=== PATIENT | female | born 1940 | race Caucasian/White ===

== ENCOUNTER → 2023-12-17 12:21 | Outpatient (REF) | payer MEDICARE, BC, SELFPAY | LOC: HWRAD 12:21 | PROVIDERS: ATTENDING PHYSICIAN Physician Assistant Medical | DX: Z12.31 Encounter for screening mammogram for malignant neoplasm of breast (principal); M85.89 Other specified disorders of bone density and structure, multiple sites; E59 Dietary selenium deficiency | CPT/HCPCS: 77080 ==

== ENCOUNTER 2024-05-23 12:09 | Emergency (ER) | payer MEDICARE, BC, SELFPAY ==
[2024-05-23 12:20] VITALS: BP 160/84
--- NOTE | 2024-05-23 14:12 | ED.GENMED ---
History of Present Illness
General
Chief Complaint: Fall
Time Seen by Provider: 05/23/24 13:33
History of Present Illness
History of Present Illness:
Patient is a 84-year-old woman with history of hypertension presenting to the emergency department after a fall yesterday. Patient states that she was sitting in a foldable lawn chair when she got up and the chair fell over. She also fell landing
on her right side. She did not hit her head or lose consciousness. She is not on a blood thinner. She did have some pain to her shoulder and hip yesterday that she did take Motrin for and iced. However today she woke up with significantly
worsening pain and soreness. She is ambulatory. She does intermittently use a walker. No numbness tingling. No weakness
Past History
Past History
ED Past Medical History: HTN
ED Past Surgical History: Orthopedic
Social History
Tobacco: Non-smoker
Alcohol: None
Drug: None
Personal:
Living: with family
Phy Exam
Physical Exam
Physical Exam:
GENERAL: no acute distress
HEENT: atraumatic, extraocular muscles intact, no signs of entrapment, dentition intact, no other obvious trauma
NECK: no midline tenderness, normal range of motion, no other obvious trauma
BACK: no midline tenderness, no other obvious trauma
CHEST: no tenderness, no flail segment, no subcutaneous emphysema, no other obvious trauma
LUNGS: clear to auscultation bilaterally
CARDIOVASCULAR: regular rate and rhythm
ABDOMEN: soft, non-tender, no masses, no other obvious trauma
PELVIS: stable, no obvious injury
EXTREMITIES: moving all extremities, distal pulses intact, no other obvious trauma, diffuse tenderness over the right shoulder/scapula, right hip and right wrist. No point tenderness. 5 out of 5 strength in all extremities
NEUROLOGIC: awake, alert x 3, no focal deficits
Course
Orders/Labs/Results
Orders:
Orders
05/23/24 14:10
Ibuprofen [Motrin] 800 mg PO NOW STA
CR Hand - Right Min 3 Views Urgent
Comment:
Reason For Exam: fall
CR Hip - RT w/wo Pel 2-3 Vw* Urgent
Comment:
Reason For Exam: fall, hip pain
Include a pelvis x-ray?: Yes
CR Knee - Right 1 Or 2 Views Urgent
Comment:
Reason For Exam: pain
CR Shoulder - Right Min 2 View Urgent
Comment:
Reason For Exam: fall
Vital Signs
Initial and Last Documented VS:
Initial Vital Signs
Temp Pulse Resp BP Pulse Ox
97.7 F 81 16 160/84 99
05/23/24 12:20 05/23/24 12:20 05/23/24 12:20 05/23/24 12:20 05/23/24 12:20
Last Documented Vital Signs
Temp Pulse Resp BP Pulse Ox
97.7 F 81 16 160/84 99
05/23/24 12:20 05/23/24 12:20 05/23/24 12:20 05/23/24 12:20 05/23/24 12:20
MDM/Problems Addressed
Differential Diagnosis Includes:
Patient is a 84-year-old woman presenting to the emergency department after a fall yesterday with right sided body pain. Vitals unremarkable and exam does show diffuse tenderness over the right shoulder right wrist, right hip and right knee. She
does not have any point tenderness or overlying ecchymoses. Her muscles are extremely tight. Will rule out fractures with x-rays. Likely muscular sprain/bruising. Will give Motrin. Patient advised with physical therapy icing as well as
stretching.
*Critical Care Note
Total Time (30-74mins, 75-104mins- exclusive of procedures): Not Applicable
Update Note
Update Note:
X-rays per my interpretation with no acute fractures. Patient is ambulatory. Will discharge. Educated patient on pain medications as well as the importance of physical therapy.
ED Attending Note
-
Portions of this chart may have been created with voice recognition software.� Occasional wrong word or��sound alike� substitutions may have occurred due to the inherent limitations of voice recognition software.
Discharge Plan
Departure
Patient Disposition: Home (Routine Discharge)
Date of Disposition: 05/23/24
Time of Disposition: 16:10
Patient with high blood pressure during this ER visit?: Yes
Discharge Problem:
Fall
Instructions: Preventing falls in adults
Prescriptions:
No Action
ondansetron 4 MG tablet,disintegrating
4 mg PO TIDPRN PRN (Reason: nausea/vomiting) Qty: 10 0RF
Referrals:
UNKNOWN - PT DOES,NOT KNOW [Family Provider] -
Activity Restrictions/Additional Instructions:
You were seen in the Emergency Department today for a fall. While you were here we performed x-ray, which was reassuring.
We would like for you to follow up with your primary care physician for further evaluation. If you experience fever, worsening of your symptoms, or develop any other new or concerning symptoms, please return to the Emergency Department immediately.
Please see the attached sheet for additional information.
Interventions
Interventions:
*Risk Screen - Suicide Last Done: 05/23/24 12:20
*General Assessment Last Done: 05/23/24 14:32
*Neglect/Abuse Screening Last Done: 05/23/24 12:20
*ED COVID-19 Vaccine History Last Done: 05/23/24 14:32
ED-Musculoskeletal Assessment Last Done: 05/23/24 14:31
ED- Neurological Assessment Last Done: 05/23/24 14:31
ED-Skin Assessment Last Done: 05/23/24 14:31
Discharge Date and Time
Print Language: ROMANIAN
[2024-05-23] MEDS: MOTRIN 800 MG PO (14:27)
== END 2024-05-23 16:25 | disposition home or self-care (01) ==
LOC: EMR 12:09
PROVIDERS: EMERGENCY PHYSICIAN Student in an Organized Health Care Education/Training Program
DX: M25.511 Pain in right shoulder (principal); M25.551 Pain in right hip; M25.531 Pain in right wrist; W19.XXXA Unspecified fall, initial encounter; I10 Essential (primary) hypertension
CPT/HCPCS: 99284; 73030; 73130; 73502; 73560

== ENCOUNTER 2024-07-13 05:36 | Emergency (ER) | payer MEDICARE, BC, SELFPAY ==
[2024-07-13 05:58] VITALS: BP 157/81
[2024-07-13 06:14] LABS: Carboxyhemoglobin 2.6 %
[2024-07-13 06:16] LABS: % Basophils 0.6 % (0-2); % Eosinophils 2.5 % (0-6); % Immature Granulocytes 0.2 % (0-0.5); % Lymphocytes 35.1 % (20.5-51.1); % Monocytes 11.2 % (1.7-9.3); % Neutrophils 50.4 % (42.2-75.2); Absolute Eosinophils 0.2 10^3/uL (0-0.7); Absolute Lymphocytes 2.2 10^3/uL (1.2-3.4); Absolute Monocytes 0.7 10^3/uL (0.1-0.6); Absolute Neutrophils 3.2 10^3/uL (1.4-6.5); Hematocrit 38.4 % (37.0-47.0); Hemoglobin 13.4 g/dL (12.0-16.0); Mean Corp Hgb Conc. 34.9 g/dL (33.0-37.0); Mean Corpuscular Hgb 33.3 pg (27.0-31.0); Mean Corpuscular Volume 95.5 fL (81.0-99.0); Mean Platelet Volume 11.1 fL (7.4-10.4); Nucleated Red Blood Cells % 0 %; Platelet Count 186 10^3/uL (130-400); Red Blood Cell Count 4.02 10^6/uL (4.20-5.40); Red Cell Dist. Width 11.9 % (11.5-14.5); White Blood Cell Count 6.3 10^3/uL (4.8-10.8)
[2024-07-13 06:28] VITALS: BMI 34.5
[2024-07-13 06:31] LABS: ALT (SGPT) 27 U/L (0-35); AST (SGOT) 29 U/L (14-36); Albumin 4.3 g/dl (3.5-5.0); Alkaline Phosphatase 109 U/L (38-126); Blood Urea Nitrogen 18 mg/dl (7-17); Calcium 9.6 mg/dl (8.4-10.2); Carbon Dioxide 20 mmol/L (22-30); Chloride 106 mmol/L (98-107); Estimated Creatinine Clearance 82 ml/min; Glucose 126 mg/dl (70-99); Potassium 3.9 mmol/L (3.5-5.1); Sodium 137 mmol/L (135-145); Total Bilirubin 0.6 mg/dl (0.2-1.3); Total Protein 6.7 g/dl (6.3-8.2); eGFR > 60.00
[2024-07-13 07:04] LABS: Troponin I < 0.012 ng/ml
[2024-07-13 07:34] VITALS: BP 160/76
[2024-07-13] MEDS: DUONEB 3 ML INH (07:38)
[2024-07-13] MEDS: DECADRON 10 MG IV (07:38)
[2024-07-13 08:00] VITALS: BP 146/68
[2024-07-13 08:14] LABS: Troponin I < 0.012 ng/ml
--- NOTE | 2024-07-13 08:18 | ED.GENMED ---
History of Present Illness
General
Chief Complaint: Exposure-Chemical
Source: patient, records and family
Exam Limitations: none
Time Seen by Provider: 07/13/24 06:20
Nursing documentation reviewed up to this point in time: agreed with
History of Present Illness
History of Present Illness:
Patient is an 84-year-old female presents to the emergency department after waking around 330 this morning with a pressure feeling in her chest especially with coughing and feeling congested in her nose. Patient felt mildly short of breath.
Patient denies palpitations or diaphoresis. Patient denies any GI or symptoms. Patient denies any leg pain or swelling. Patient denies any fever or chills. Yesterday at 3:30 PM she was warming a heat pack in her microwave that began to smoke
and she inhaled the smoke. Patient is a non-smoker lifelong. Patient has no history of respiratory issues. Patient is actually feeling better now except for feeling congested in her nose.
Past History
Past History
ED Past Medical History: HTN
ED Past Surgical History: Orthopedic
Social History
Tobacco: Non-smoker
Alcohol: None
Drug: None
Personal:
Living: with family
Review of Systems
Review of Systems
All Other Systems: ROS reviewed and negative except as documented in HPI and ROS
Constitutional: Reports no symptoms
EENT: Reports runny nose
Respiratory: Reports cough and trouble breathing
Cardiac: Reports chest pain; Denies diaphoresis, palpitations or syncope
ABD/GI: Reports no symptoms
: Reports no symptoms
Musculoskeletal: Reports no symptoms
Skin: Reports no symptoms
Neurological: Reports no symptoms
Hematologic/Lymphatic: Reports no symptoms
Phy Exam
Physical Exam
Physical Exam:
Physical Exam
General: No apparent distress, alert and appropriate, well nourished, well hydrated
HENT: Normocephalic, supple with no lymphadenopathy, no thyromegaly. Turbinates enlarged with clear rhinorrhea
Eyes: Clear sclera, conjuctiva without injection
Heart: Regular rhythm and rate. No S3, S4. No murmur. No NVD
Lungs: No respiratory distress, no stridor, lung sounds are coarse but clear and equal bilaterally
Abdomen: Soft, nontender, no organomegaly, BS good
Neuro: Alert and oriented x 3, CN II - XII intact, no motor focality, no cerebellar dysfunction
Skin: no rash
Psychiatric: well kept. interactive and cooperative
Extremities: No edema, cyanosis, tenderness, Good and equal peripheral pulses.
Course
Orders/Labs/Results
Orders:
Orders
07/13/24 05:38
Electrocardiogram (*1) Urgent
Reason for Study: Chest Pain
EKG- Treatment ONCE
07/13/24 05:59
Carboxyhemoglobin Urgent
Complete Blood Count/With Diff Urgent
Comprehensive Metabolic Panel Urgent
Troponin I Urgent
07/13/24 06:44
Dexamethasone Sod Phosphate [Decadron] 10 mg IV NOW STA
Ipratropium/Albuterol Sulfate [Duoneb] 3 ml INH R NOW STA
07/13/24 07:36
Troponin I Urgent
Abnormal Lab Results
07/13/24
05:59
RBC 4.02 L 10^6/uL
(4.20-5.40)
MCH 33.3 H pg
(27.0-31.0)
MPV 11.1 H fL
(7.4-10.4)
Absolute Monos (auto) 0.7 H 10^3/uL
(0.1-0.6)
Monocytes % 11.2 H %
(1.7-9.3)
Carbon Dioxide 20 L mmol/L
(22-30)
BUN 18 H mg/dl
(7-17)
Glucose 126 H mg/dl
(70-99)
07/13/24 05:59
07/13/24 05:59
Vital Signs
Initial and Last Documented VS:
Initial Vital Signs
Temp Pulse Resp
98.4 F 78 20
07/13/24 05:42 07/13/24 05:42 07/13/24 05:42
Last Documented Vital Signs
Temp Pulse Resp BP Pulse Ox
98.4 F 67 14 160/76 97
07/13/24 05:42 07/13/24 07:15 07/13/24 07:15 07/13/24 07:34 07/13/24 07:34
*Radiology
Radiology exam reviewed: other (na)
*Pulse Oximetry
Patient hypoxic: no
*EKG
Interpreted by ED Provider?: Yes
EKG Intrepretation Date: 07/13/24
EKG Intrepretation Time: 08:22
Interpretation: abnormal
Comparison EKG: no comparison EKG present
Heart Rate: 81
Rate: normal
Rhythm: sinus
[place]: normal axis
Interval: normal interval
QRS Pattern: left bundle branch block (Incomplete) and left vent hypertrophy
Ischemia: no ischemia
*Straightener Interpretation
Rate: normal
Interpretation: normal
Heart Rate: 80
Rhythm: sinus
*Critical Care Note
Total Time (30-74mins, 75-104mins- exclusive of procedures): Not Applicable
Update Note
Update Note:
Do not believe the patient had a cardiac episode but this was more respiratory causing the tightness in the chest. Patient will be discharged. Patient's carboxyhemoglobin is within normal limits. Believe she had inflammation of the lungs.
ED Attending Note
-
Portions of this chart may have been created with voice recognition software.� Occasional wrong word or��sound alike� substitutions may have occurred due to the inherent limitations of voice recognition software.
Discharge Plan
Departure
Patient Disposition: Home (Routine Discharge)
Date of Disposition: 07/13/24
Time of Disposition: 08:23
Patient with high blood pressure during this ER visit?: Yes
Condition: Good
Covid-19: Not Applicable
Discharge Problem:
Bronchitis due to fumes and vapors
Instructions: Bronchitis in adults - ED discharge instructions, BLOOD PRESSURE
Prescriptions:
No Action
ascorbic acid (vitamin C) [Vitamin C] 500 mg Tablet
500 mg PO DAILY
lisinopril 10 mg Tablet
10 mg PO DAILY
cholecalciferol (vitamin D3) [Vitamin D3] 50 mcg (2,000 unit) Tablet
50 mcg PO DAILY
[place] Yeast
1 tab PO DAILY
timolol
1 drp ophthalmic (eye) DAILY
Patient Comments:
both eyes
Referrals:
Zulema Chun PA-C [Family Provider] - Follow up in 5-7 days
Activity Restrictions/Additional Instructions:
Avoid any fumes. Any problems please return. Otherwise continue present medications. Happy holidays
Interventions
Interventions:
*Risk Screen - Suicide Last Done: 07/13/24 05:42
*General Assessment Last Done: 07/13/24 05:42
*Neglect/Abuse Screening Last Done: 07/13/24 05:42
ED- Fall Risk Assessment Last Done: 07/13/24 05:50
*ED COVID-19 Vaccine History Last Done: 07/13/24 05:42
ED-EENT Assessment Last Done: 07/13/24 05:50
ED- Pulmonary Assessment Last Done: 07/13/24 05:50
ED-Skin Assessment Last Done: 07/13/24 05:50
Discharge Date and Time
Print Language: PALAUAN
== END 2024-07-13 08:32 | disposition home or self-care (01) ==
LOC: EMR 05:36
PROVIDERS: Student in an Organized Health Care Education/Training Program; EMERGENCY PHYSICIAN Emergency Medicine; FAMILY PHYSICIAN Physician Assistant Medical
DX: T59.91XA Toxic effect of unspecified gases, fumes and vapors, accidental (unintentional), initial encounter (principal); T59.811A Toxic effect of smoke, accidental (unintentional), initial encounter; J68.0 Bronchitis and pneumonitis due to chemicals, gases, fumes and vapors; I10 Essential (primary) hypertension
CPT/HCPCS: 99284; 96374; 94640; 80053; 82375; 84484; 85025; 93005